=== PATIENT | male | born 1990 ===

== ENCOUNTER → 2016-09-09 | Outpatient (REF) | payer OTHER ==
[2016-09-09 12:45] LABS: NON PROGRESSIVE MOTILITY (c) 17 %
[2016-09-09 12:46] LABS: % NORMAL FORMS 14 % (>=4); IMMOTILITY 26 %; PROGRESSIVE MOTILITY (a) 57 % (>=32); SPERM# 47.4 M/Ejac (33-46); TOTAL FUNCTIONAL 8.1 M/Ejac.; TOTAL MOTILITY 74 % (>=40); TOTAL PROGRESSIVE SPERM 27.2 M/Ejac.
== END ==
LOC: M LAB REF 11:11
PROVIDERS: ATTEND General Practice
DX: N46.8 Other male infertility (principal)